=== PATIENT | female | born 1980 | race Caucasian/White ===

== ENCOUNTER → 2019-06-29 | Outpatient (CLI) | payer OTHER ==
[~2019-06-29] MED LIST: ALBU90OI INH; AMOX50SU PO; Adipex-P37.5 MG PO; BCP PO; BUSP5; CEPH500 PO; CITA20 PO; CLOBETTC TP; ESCI20 PO; GLIM2 PO; HYDACE5 PO; IBUP800 PO; LAMO100 PO; LEVSOD100 PO; LORA2 PO; METF500 PO; METO5A PO; MULVITMINE; OMEP20ER PO; PANT40 PO; Verotin-Gr Cap1 EACH PO; [UNRECOGNIZED DRUG - OTHER] PO
[2019-06-29 18:38] LABS: Alanine Aminotransfer (ALT/SGP 27 U/L (12-78); Albumin, Blood 3.8 g/dL (3.4-5.0); Albumin/Globulin Ratio 1.1 (0.8-1.8); Alk Phos 88 U/L (40-126); Anion Gap 9 mmol/L (6-16); Aspartate Aminotrans (AST/SGOT 21 U/L (12-37); Bilirubin, Total 0.2 mg/dL (0.1-1.0); Blood Urea Nitrogen 16 mg/dL (8-24); CHOL/HDL RATIO 2.5; CO2, Blood 28 mmol/L (21-32); Calcium, Blood 9.3 mg/dL (8.5-10.1); Chloride, Blood 104 mmol/L (98-108); Cholesterol 148 mg/dL (50-200); Globulin, Blood 3.4 g/dL (2.2-4.0); Glomerular Filtration Rate >60 (60-); Glucose, Blood 113 mg/dL (70-99); HDL Cholesterol 60 mg/dL (>39); LDL/HDL RATIO 1.3; Low Density Lipoprotein Chol 79 mg/dL (<110); Potassium, Blood 3.8 mmol/L (3.5-5.5); Sodium, Blood 141 mmol/L (136-145); Total Protein, Blood 7.2 g/dL (6.4-8.2); Triglycerides 45 mg/dL (30-140); Very Low Density Lipoprot Chol 9 mg/dL (6-28)
== END ==
LOC: LAB SHORT 18:00 → LAB EV 18:00
PROVIDERS: Nurse Practitioner
DX: E11.9 Type 2 diabetes mellitus without complications (principal)
CPT/HCPCS: 36415; 80053; 80061; 82043; 83036

== ENCOUNTER → 2020-08-19 | Outpatient (CLI) | payer OTHER ==
[2020-08-19 07:56] LABS: Source, Urine Clean Catch
[2020-08-19 08:15] LABS: Appearance, Urine Clear (Clear); Bilirubin, Urine Neg (Neg); Blood, Urine Neg (Neg); Color, Urine Yellow (P-Yellow); Glucose Qualitative, Urine Neg (Normal); Ketones, Urine Neg (Neg); Leukocyte Esterase, Urine Neg (Neg); Nitrite, Urine Neg (Neg); Protein, Urine Neg (Neg); Urobilinogen, Urine NORM (Normal); pH, Urine 6.5 (5.0-8.0)
== END | disposition home or self-care (01) ==
LOC: LAB SHORT 07:44 → LAB EV 07:44
PROVIDERS: Nurse Practitioner
DX: R35.0 Frequency of micturition (principal)
CPT/HCPCS: 81003

== ENCOUNTER → 2020-08-22 | Outpatient (CLI) | payer OTHER | END | disposition home or self-care (01) | LOC: LAB EV 11:29 → LAB SHORT 11:29 | DX: N39.0 Urinary tract infection, site not specified (principal) | CPT/HCPCS: 87077; 87086; 87186 ==

== ENCOUNTER 2020-10-30 20:31 | Emergency (ER) | payer OTHER ==
[~2020-10-30] VITALS: Ht 160 cm; Wt 93.0 kg
[2020-10-30 21:21] LABS: Source, Urine Clean Catch
[2020-10-30 21:24] LABS: BASOPHILS ABSOLUTE AUTO 0.06 K/mm3 (0.00-0.23); BASOPHILS PERCENT AUTO 1 % (0-2); EOSINOPHILS ABSOLUTE AUTO 0.16 K/mm3 (0.00-0.68); EOSINOPHILS PERCENT AUTO 2 % (0-6); Hematocrit 43.5 % (33.0-51.0); Hemoglobin 13.8 g/dL (11.5-16.0); IMMATURE GRAN ABSOLUTE AUTO 0.02 K/mm3 (0.00-0.10); IMMATURE GRAN PERCENT AUTO 0 % (0-1); LYMPHOCYTES ABSOLUTE AUTO 2.52 K/mm3 (0.84-5.20); LYMPHOCYTES PERCENT AUTO 28 % (21-46); MONOCYTES ABSOLUTE AUTO 0.47 K/mm3 (0.16-1.47); MONOCYTES PERCENT AUTO 5 % (4-13); Mean Corpuscular HGB 29.7 pg (26.0-34.0); Mean Corpuscular HGB Conc 31.7 g/dL (31.5-36.5); Mean Corpuscular Volume 94 fL (80-100); Mean Platelet Volume 9.9 fL (9.1-12.4); NEUTROPHILS ABSOLUTE AUTO 5.86 K/mm3 (1.96-9.15); NEUTROPHILS PERCENT AUTO 64 % (41-73); Platelet Count 275 K/mm3 (150-400); RDW Coefficient Variation 12.8 % (11.7-14.2); RDW Standard Deviation 43.9 fL (35.1-46.3); Red Blood Cell Count 4.64 M/mm3 (3.80-5.20); White Blood Cell Count 9.09 K/mm3 (4.00-11.30)
[2020-10-30 21:25] LABS: Bilirubin, Urine Neg (Neg); Blood, Urine 4+ (Neg); Glucose Qualitative, Urine Neg (Neg); Ketones, Urine Neg (Neg); Leukocyte Esterase, Urine 3+ (Neg); Nitrite, Urine Neg (Neg); Protein, Urine 1+ (Neg); Urobilinogen, Urine NORM (Normal)
[2020-10-30 21:26] LABS: Appearance, Urine Hazy (Clear); Color, Urine Yellow (P-Yellow)
[2020-10-30 21:35] LABS: Bacteria Many /hpf; Squamous Epithelial Cells Few /hpf (Few); White Blood Cells, Urine TNTC /hpf (0-5)
[2020-10-30 21:42] LABS: Alanine Aminotransfer (ALT/SGP 18 U/L (12-78); Albumin, Blood 3.5 g/dL (3.4-5.0); Albumin/Globulin Ratio 0.9 (0.8-1.8); Alk Phos 80 U/L (50-136); Anion Gap 3 mmol/L (6-16); Aspartate Aminotrans (AST/SGOT 13 U/L (12-37); Bilirubin, Total 0.2 mg/dL (0.1-1.0); Blood Urea Nitrogen 13 mg/dL (8-24); Bun/Creatinine Ratio 19.6 (12.0-20.0); CO2, Blood 30 mmol/L (21-32); Calcium, Blood 8.8 mg/dL (8.5-10.1); Chloride, Blood 107 mmol/L (98-108); Creatinine, Blood 0.66 mg/dL (0.40-1.00); Globulin, Blood 3.7 g/dL (2.2-4.0); Glomerular Filtration Rate >60 (60-); Glucose, Blood 169 mg/dL (70-99); Sodium, Blood 140 mmol/L (136-145); Total Protein, Blood 7.2 g/dL (6.4-8.2)
[2020-10-30] MEDS ORDERED: Keflex500 MG PO (22:05)
== END 2020-10-30 22:41 | disposition home or self-care (01) ==
LOC: ER 20:31
PROVIDERS: Emergency Medicine
DX: N39.0 Urinary tract infection, site not specified (principal); R51.9 Headache, unspecified; F17.200 Nicotine dependence, unspecified, uncomplicated; Z79.84 Long term (current) use of oral hypoglycemic drugs; Z91.040 Latex allergy status; Z79.899 Other long term (current) drug therapy
CPT/HCPCS: 36415; 80053; 81001; 83690; 85025; 87086; 96374; 96375; 99284-25; A9270-GY; J1200; J1885; J2405

== ENCOUNTER 2021-04-18 07:00 | Day surgery (SDC) | payer OTHER ==
[~2021-04-18] VITALS: Ht 160 cm; Wt 98.0 kg
[~2021-04-18 07:00] MED LIST changes: -BUSP5; +BUSP5 PO; +Keflex500 MG PO
[2021-04-18] MEDS ORDERED: NEURONTIN300 MG PO (07:13)
[2021-04-18] MEDS ORDERED: Vitamin D2000 UNIT PO (07:13)
[2021-04-18] MEDS ORDERED: Lovastatin10 MG PO (07:13)
[2021-04-18] MEDS ORDERED: LISINOPRIL2.5 MG PO (07:14)
--- NOTE | 2021-04-18 07:39 | NUR ---
Ambulatory in Day Surgery Patient confirms NPO status and agrees with scheduled surgery. History, Chart, Medications and Allergies reviewed before start of procedure. Lungs clear T/O to Auscultation. Patient States Post-Procedure ride home has been arranged. CHEM BG 157.
--- NOTE | 2021-04-18 07:57 | NUR ---
04/18/21 0757 Hieu Santamaria History, Chart, Medications and Allergies reviewed before start of procedure. MONITOR INTACT WITH CONTINUOUS PULSE OXIMETRY AND INTERMITTENT BP. 3-LEAD EKG REVIEWED WITH PHYSICIAN PRIOR TO START OF PROCEDURE. O2 VIA N/C INTACT THROUGHOUT SEDATION/PROCEDURE. HURRICAINE SPRAY TO OROPHARYX. Bite Block Placed. PATIENT DETERMINED TO BE ASA APPROPRIATE FOR PROPOFOL SEDATION PRIOR TO START OF PROCEDURE BY DR. WHALEN.
--- NOTE | 2021-04-18 09:04 | NUR ---
Patient up to Ambulate independently. Gait steady. Discharge instructions reviewed with patient. Patient verbalizes understanding. Copy given to patient to take home. Discharged via wheelchair to private car for ride home.
== END 2021-04-18 23:04 | disposition home or self-care (01) ==
LOC: ORSCMMR 07:00 → ORD 08:00 → ORSCMMR 23:04
PROVIDERS: Internal Medicine Gastroenterology
PROC: 0DB68ZX Excision of Stomach, Via Natural or Artificial Opening Endoscopic, Diagnostic (ICD-10-PCS; principal; 2021-04-18 08:00)
PROC: 0DB58ZX Excision of Esophagus, Via Natural or Artificial Opening Endoscopic, Diagnostic (ICD-10-PCS; principal; 2021-04-18 08:00)
PROC: 0DB48ZX Excision of Esophagogastric Junction, Via Natural or Artificial Opening Endoscopic, Diagnostic (ICD-10-PCS; principal; 2021-04-18 08:00)
DX: K21.9 Gastro-esophageal reflux disease without esophagitis (principal); R11.2 Nausea with vomiting, unspecified; E11.9 Type 2 diabetes mellitus without complications; E78.00 Pure hypercholesterolemia, unspecified; M79.7 Fibromyalgia; Z79.899 Other long term (current) drug therapy; F17.210 Nicotine dependence, cigarettes, uncomplicated
CPT/HCPCS: 82947; 88305; 88342; A9270; J2704; J7120

== ENCOUNTER → 2022-10-20 | Outpatient (CLI) | payer OTHER ==
[~2022-10-20] MED LIST changes: +LISINOPRIL2.5 MG PO; +Lovastatin10 MG PO; +NEURONTIN300 MG PO; +Vitamin D2000 UNIT PO
== END | disposition home or self-care (01) ==
DX: R53.83 Other fatigue (principal); R07.9 Chest pain, unspecified

== ENCOUNTER 2023-03-22 09:54 | Emergency (ER) | payer OTHER ==
[~2023-03-22] VITALS: Ht 160 cm; Wt 88.0 kg
[2023-03-22] MEDS ORDERED: LEVSOD25 (10:51)
[2023-03-22] MEDS ORDERED: INSULIN GL100 UNIT/2 SQ (10:51)
[2023-03-22] MEDS ORDERED: CARB200 PO (11:56)
[2023-03-22 12:06] VITALS: BP 149/107
== END 2023-03-22 12:12 | disposition home or self-care (01) ==
LOC: ER 09:54
DX: G50.0 Trigeminal neuralgia (principal); Z88.8 Allergy status to other drugs, medicaments and biological substances; Z91.048 Other nonmedicinal substance allergy status; Z79.899 Other long term (current) drug therapy; Z79.4 Long term (current) use of insulin; F17.200 Nicotine dependence, unspecified, uncomplicated
CPT/HCPCS: 99283; A9270

== ENCOUNTER 2024-05-07 08:42 | Day surgery (SDC) | payer OTHER ==
[~2024-05-07] VITALS: Ht 160 cm; Wt 103.9 kg
[~2024-05-07 08:42] MED LIST changes: +CARB200 PO; +CeFAZolin Sodium 2,000 MG VIAL ONE; +INSULIN GL100 UNIT/2 SQ; +LEVSOD25; +NS 50 ML IV ONE
[2024-05-07] MEDS ORDERED: propofoL 20 ML IV ONE (08:59)
[2024-05-07] MEDS ORDERED: DIM PLUS CDG C1 EACH (09:15)
[2024-05-07] MEDS ORDERED: Lactated Ringer's 1,000 ML IV ONE (09:18)
--- NOTE | 2024-05-07 09:24 | NUR ---
05/07/24 0924 Sia Lott 0919- DR GOMEZ PRESENTED TO RENAE-OP HOLDING AREA TO INJECT R THUMB WITH A SYRINGE CONTAINING 9CC LIDOCAINE WITH EPI 1;100,000 AND 1CC SODIUM BICARBONATE. 6CC WAS INJECTED WITH NO COMPLICATIONS. PT TOLERATED PROCEDURE WELL.
[2024-05-07 09:47] VITALS: BP 130/70
== END 2024-05-07 10:17 | disposition home or self-care (01) ==
LOC: ORSCSDS 08:42
PROVIDERS: Orthopaedic Surgery
PROC: 0LN70ZZ Release Right Hand Tendon, Open Approach (ICD-10-PCS; principal; 2024-05-07 10:00)
DX: M65.311 Trigger thumb, right thumb (principal); K21.9 Gastro-esophageal reflux disease without esophagitis; E11.9 Type 2 diabetes mellitus without complications; R56.9 Unspecified convulsions; J45.909 Unspecified asthma, uncomplicated; F31.9 Bipolar disorder, unspecified; E66.9 Obesity, unspecified; Z68.41 Body mass index [BMI] 40.0-44.9, adult
CPT/HCPCS: 82947; J0690; J2704; J7120

== ENCOUNTER 2024-12-21 07:41 | Day surgery (SDC) | payer OTHER ==
[~2024-12-21] VITALS: Ht 160 cm; Wt 103.8 kg
[~2024-12-21 07:41] MED LIST changes: -CeFAZolin Sodium 2,000 MG VIAL ONE; +DIM PLUS CDG C1 EACH; -NS 50 ML IV ONE; +NS 500 ML IV ONE
[2024-12-21] MEDS ORDERED: FentaNYL Citrate 50 MCG/ML 2 ML Injection ONE (07:50)
[2024-12-21] MEDS ORDERED: Midazolam HCl 1MG / ML 2ML Vial ONE (07:50)
[2024-12-21] MEDS ORDERED: CeFAZolin Sodium 2,000 MG VIAL ONE (07:50)
[2024-12-21] MEDS ORDERED: propofoL 20 ML IV ONE (07:50)
[2024-12-21] MEDS ORDERED: NS 500 ML IV ONE (07:56)
[2024-12-21] MEDS ORDERED: ALBU90OI INH (08:12)
--- NOTE | 2024-12-21 08:43 | NUR ---
12/21/24 0843 [place] TIME OUT PERFORMED AT BEDSIDE WITH DR GOMEZ IMMEDIATELY PRIOR TO INJECTION INTO L HAND OF 10ML SOLUTION OF 9ML LIDOCAINE WITH EPI 1:141135 AND 1ML 8.4% SODIUM BICARBONATE AT 0840.
[2024-12-21 09:19] VITALS: BP 111/78
--- NOTE | 2024-12-21 09:42 | NUR ---
12/21/24 0942 Veronica Lopez D/C INSTRUCTIONS GIVEN TO PT & PT'S SIGNIFICANT OTHER, UNDERSTANDING VERBALIZED. PT GETTING DRESSED W/ HELP FROM SIGNIFICANT OTHER AT THIS TIME.
== END 2024-12-21 09:47 | disposition home or self-care (01) ==
LOC: ORSCSDS 07:41
PROVIDERS: Orthopaedic Surgery
PROC: 01N60ZZ Release Radial Nerve, Open Approach (ICD-10-PCS; principal; 2024-12-21 09:00)
PROC: 0LN80ZZ Release Left Hand Tendon, Open Approach (ICD-10-PCS; principal; 2024-12-21 09:00)
PROC: 01N54ZZ Release Median Nerve, Percutaneous Endoscopic Approach (ICD-10-PCS; principal; 2024-12-21 09:00)
DX: G56.02 Carpal tunnel syndrome, left upper limb (principal); M65.312 Trigger thumb, left thumb; J45.909 Unspecified asthma, uncomplicated; F31.89 Other bipolar disorder; K21.9 Gastro-esophageal reflux disease without esophagitis; E11.9 Type 2 diabetes mellitus without complications; E03.9 Hypothyroidism, unspecified; E66.9 Obesity, unspecified; Z68.41 Body mass index [BMI] 40.0-44.9, adult; Z79.84 Long term (current) use of oral hypoglycemic drugs; Z79.4 Long term (current) use of insulin; Z79.899 Other long term (current) drug therapy; Z87.891 Personal history of nicotine dependence
CPT/HCPCS: 82947; J0690; J2250; J2704; J3010; J7040

== ENCOUNTER 2025-11-14 10:24 | Emergency (ER) | payer OTHER ==
[~2025-11-14] VITALS: Ht 160 cm; Wt 108.9 kg
[~2025-11-14 10:24] MED LIST changes: -NS 500 ML IV ONE
[2025-11-14] MEDS ORDERED: Ondansetron HCl 2 MG / ML 2ML Vial IV ONE (10:40)
[2025-11-14] MEDS ORDERED: Morphine Sulfate 4 MG/1 ML Injection IV ONE (10:40)
[2025-11-14 11:01] LABS: BASOPHILS ABSOLUTE AUTO 0.05 K/mm3 (0.00-0.23); BASOPHILS PERCENT AUTO 1 % (0-2); EOSINOPHILS ABSOLUTE AUTO 0.07 K/mm3 (0.00-0.68); EOSINOPHILS PERCENT AUTO 1 % (0-6); Hematocrit 41.9 % (33.0-51.0); Hemoglobin 14.0 g/dL (11.5-16.0); IMMATURE GRAN ABSOLUTE AUTO 0.00 K/mm3 (0.00-0.10); IMMATURE GRAN PERCENT AUTO 0 % (0-1); LYMPHOCYTES ABSOLUTE AUTO 2.47 K/mm3 (0.84-5.20); LYMPHOCYTES PERCENT AUTO 34 % (21-46); MONOCYTES ABSOLUTE AUTO 0.52 K/mm3 (0.16-1.47); MONOCYTES PERCENT AUTO 7 % (4-13); Mean Corpuscular HGB Conc 33.4 g/dL (31.5-36.5); Mean Corpuscular Volume 87 fL (80-100); NEUTROPHILS ABSOLUTE AUTO 4.17 K/mm3 (1.96-9.15); NEUTROPHILS PERCENT AUTO 57 % (41-73); NRBC ABSOLUTE 0.00 K/mm3 (0.00-0.02); NRBC Auto 0.0 /100 WBC (0.0-0.2); Platelet Count 269 K/mm3 (150-400); RDW Coefficient Variation 12.2 % (11.7-14.2); RDW Standard Deviation 39.3 fL (35.1-46.3)
[2025-11-14 11:24] LABS: Alanine Aminotransfer (ALT/SGP 26.0 U/L (12-78); Albumin, Blood 3.6 g/dL (3.4-5.0); Albumin/Globulin Ratio 0.9 (0.8-1.8); Anion Gap 8.0 mmol/L (3-11); Aspartate Aminotrans (AST/SGOT 17.0 U/L (12-37); Bilirubin, Total 0.2 mg/dL (0.1-1.0); Blood Urea Nitrogen 11.0 mg/dL (8-24); CO2, Blood 29.0 mmol/L (21-32); Calcium, Blood 8.8 mg/dL (8.5-10.1); Chloride, Blood 101.0 mmol/L (98-108); Creatinine, Blood 0.71 mg/dL (0.40-1.00); Globulin, Blood 4.0 g/dL (2.2-4.0); Glucose, Blood 259.0 mg/dL (70-99); Potassium, Blood 4.0 mmol/L (3.5-5.5); Sodium, Blood 134.0 mmol/L (136-145); Total Protein, Blood 7.6 g/dL (6.4-8.2)
[2025-11-14 13:30] VITALS: BP 134/87
[2025-11-14] MEDS ORDERED: IBUP600 PO (13:38)
== END 2025-11-14 14:00 | disposition home or self-care (01) ==
LOC: ER 10:24
PROVIDERS: Emergency Medicine
DX: R07.89 Other chest pain (principal); S54.92XA Injury of unspecified nerve at forearm level, left arm, initial encounter; F17.200 Nicotine dependence, unspecified, uncomplicated; Z91.040 Latex allergy status; Z88.8 Allergy status to other drugs, medicaments and biological substances; Z79.4 Long term (current) use of insulin; Z79.84 Long term (current) use of oral hypoglycemic drugs; Z79.890 Hormone replacement therapy; Z79.899 Other long term (current) drug therapy; X58.XXXA Exposure to other specified factors, initial encounter
CPT/HCPCS: 71045; 80053; 84484; 85025; 93005; 93010; 96374; 96375; 99285-25; A9270; J2270; J2405